=== PATIENT | female | born 1995 | race Caucasian/White ===

== ENCOUNTER → 2017-08-11 02:12 | Emergency (ER) | payer BC ==
[~2017-08-11 02:12] MED LIST: Charcoal ACTIVATED* 25 GM/120 ML BTL PO ONE
[2017-08-11 02:43] LABS: Urine Bilirubin Negative (Negative); Urine Glucose Negative (Negative); Urine Nitrite Negative (Negative)
[2017-08-11 03:00] LABS: Benzodiazepine Urine Screen None Detected (None Detect)
[2017-08-11 03:04] LABS: Hematocrit 41 % (35-47); Hemoglobin 13.7 g/dl (12.0-16.0); Mean Corpuscular HGB Conc 34 g/dl (31-36); Mean Corpuscular Hemoglobin 32 pg (27-31); Mean Corpuscular Volume 96 fL (80-97); Mean Platelet Volume 7 um3 (7.4-10.4); Red Blood Count 4.26 10^6/ul (4.0-5.4); Red Cell Distribution Width 13 % (10.5-15); White Blood Count 9.4 10^3/ul (3.5-10.8)
[2017-08-11 03:17] LABS: ALT 11 U/L (7-52); AST 18 U/L (13-39); Albumin 4.5 g/dL (3.2-5.2); Alkaline Phosphatase 71 U/L (34-104); Anion Gap 7 mmol/L (2-11); BUN/Creatinine Ratio 15.2 (8-20); Blood Urea Nitrogen 10 mg/dL (6-24); CO2 Carbon Dioxide 25 mmol/L (22-32); Calcium 9.5 mg/dL (8.6-10.3); Chloride 107 mmol/L (101-111); EGFR African American 146.8 (>60); EGFR Non-African American 114.2 (>60); Globulin 3.4 g/dL (2-4); Glucose 110 mg/dL (70-100); Potassium 3.7 mmol/L (3.5-5.0); Sodium 139 mmol/L (133-145); Total Protein 7.9 g/dL (6.4-8.9)
[2017-08-11 04:03] LABS: Alcohol 144 mg/dL (<10); Salicylate < 2.50 mg/dL (<30)
[2017-08-11 04:15] LABS: Acetaminophen 128 mcg/mL
[2017-08-11 08:23] LABS: ALT 11 U/L (7-52); AST 18 U/L (13-39); Albumin 4.4 g/dL (3.2-5.2); Alkaline Phosphatase 58 U/L (34-104); Globulin 3.1 g/dL (2-4); Total Protein 7.5 g/dL (6.4-8.9)
[2017-08-11 08:44] LABS: Salicylate < 2.50 mg/dL (<30)
--- NOTE | 2017-08-11 10:22 | PN ---
Progress Note - Progress Note Date of Service: 08/11/17 Note: S: Patient is seen, along with crisis transition nurse Julia Vargas, in the presence of her roommate. Please see Julia's MH evaluation for further Hx. Dusty is steadfastly denying SI or any risk to herself and does not believe hospitalization on the [facility] would benefit her. She follows up with a psychiatrist in [place], [place], with whom she has a follow up appointment in August. She has a list of in-network therapists from her insurance provider and would prefer this to working with the [facility] mental health program. Patient willing to contract for safety. Collateral information is reassuring. O: patient is calm and cooperative with full affect; denies SI or HI; insight and judgment are intact; future-oriented A/P: Unspecified Depressive DO: Recommend release to community care. Will f/u with in-network therapist. Patient will move up scheduled follow up with psychiatrist; she has signed consent to alert the Crisis aboriginal education worker coordinator who can help rally support on campus.
--- NOTE | 2017-08-11 10:42 | ED ---
Ness Mayorga Edward, scribed for Jered Downing MD on 08/11/17 at 0749 . Progress - Progress Note Progress Note: Pt signed out by Dr. Gonsales at shift change. Dr. Singh came and evaluated Ms. Mancera. He felt she was safe to go home and got her referred to crisis. She was D/C's in stable condition with a diagnosis of depression and overdose. Course/Dx - Diagnoses Provider Diagnoses: Drug overdose, multiple drugs, Depression, Suicide attempt The documentation as recorded by the kayeibNess gonzalez Edward accurately reflects the service I personally performed and the decisions made by Chang lee Richard L, MD.
[2017-08-11 10:54] VITALS: BP 116/68
--- NOTE | 2017-08-12 04:29 | ED ---
Bibi Mayorga Rebecca, scribed for Dany Gonsales MD on 08/11/17 at 0237 . Psychiatric Complaint - HPI Summary HPI Summary: Pt is a 21 y/o F BIBA as a 941 who presents to ED s/p excessive Tylenol, Advil and cold medication ingestion. Reports that at approximately 0100 she took 10 tabs of 200 mg Advil, 20 tabs of Tylenol and 4-6 tabs of cold medicine as well as 10 shots of vodka. States that she typically does not drink that much EtOH. Currently, her only complaint is fatigue. Sx aggravated and alleviated by nothing with no particular trigger that she can think so. PMHx depression and anxiety. States that her depression has been oscillating in intensity, which is typical for her. - History Of Current Complaint Chief Complaint: EDMentalHealth Time Seen by Provider: 08/11/17 02:18 Hx Obtained From: Patient Onset/Duration: Still Present Aggravating Factor(s): Nothing Alleviating Factor(s): Nothing Related History: Positive For: Prior Psychiatric Issues - Depression and Anxiety Ingestion History: Type/Name Of Drug - Tylenol, Ibuprofen and cold medication, Approximate Time Of Ingestion - 0100 - Allergies/Home Medications Allergies/Adverse Reactions: Allergies Allergy/AdvReac Type Severity Reaction Status Date / Time No Known Allergies Allergy Verified 08/11/17 02:43 PMH/Surg Hx/FS Hx/Imm Hx Endocrine/Hematology History: Denies: Hx Diabetes Psychiatric History: Reports: Hx Anxiety, Hx Depression Infectious Disease History: No Infectious Disease History: Denies: Traveled Outside the [place] in Last 30 Days - Family History Known Family History: Negative: Diabetes - Social History Occupation: Student Alcohol Use: Weekly Substance Use Type: Reports: None Smoking Status (MU): Light Every Day Tobacco Smoker Review of Systems Positive: Fatigue. Negative: Fever, Chills Negative: Erythema Negative: Sore Throat Negative: Chest Pain Negative: Shortness Of Breath, Cough Negative: Abdominal Pain, Vomiting, Nausea Negative: dysuria, hematuria Negative: Myalgia, Edema Negative: Rash Neurological: Other - NEGATIVE: Dizziness All Other Systems Reviewed And Are Negative: Yes Physical Exam - Summary Physical Exam Summary: Constitutional: Well-developed, Well-nourished, Alert, Odor of alcohol on breath. (-) Distressed Skin: Warm, Dry HENT: Normocephalic; Atraumatic Eyes: Conjunctiva normal Neck: Musculoskeletal ROM normal neck. (-) JVD, (-) Stridor, (-) Tracheal deviation Cardio: Rhythm regular, rate normal, Heart sounds normal; Intact distal pulses; The pedal pulses are 2+ and symmetric. Radial pulses are 2+ and symmetric. (-) Murmur Pulmonary/Chest wall: Effort normal. (-) Respiratory distress, (-) Wheezes, (-) Rales Abd: Soft, (-) Tenderness, (-) Distension, (-) Guarding, (-) Rebound Musculoskeletal: (-) Edema Lymph: (-) Cervical adenopathy Neuro: Alert, Oriented x3 Psych: Mood and affect Normal Triage Information Reviewed: Yes Vital Signs On Initial Exam: Initial Vitals Temp Pulse Resp BP Pulse Ox 98.3 F 105 18 158/135 100 08/11/17 02:14 08/11/17 02:14 08/11/17 02:14 08/11/17 02:14 08/11/17 02:14 Vital Signs Reviewed: Yes - Morena Coma Scale Coma Scale Total: 15 Diagnostics - Vital Signs Vital Signs Temp Pulse Resp BP Pulse Ox 08/11/17 02:18 98.3 F 105 18 158/135 100 08/11/17 02:14 98.3 F 105 18 158/135 100 - Laboratory Result Diagrams: 08/11/17 02:53 08/11/17 02:53 Lab Statement: Any lab studies that have been ordered have been reviewed, and results considered in the medical decision making process. - EKG 0231 Cardiac Rate: NL - 87 bpm EKG Rhythm: Sinus Rhythm Ectopy: None EKG Interpretation: QTC of 429, no STEMI Course/Dx - Course Assessment/Plan: Pt is a 21 y/o F BIBA as a 941 who presents to ED s/p excessive Tylenol, Advil and cold medication ingestion. Reports that at approximately 0100 she took 10 tabs of 200 mg Advil, 20 tabs of Tylenol and 4-6 tabs of cold medicine as well as 10 shots of vodka. States that she typically does not drink that much EtOH. Currently, her only complaint is fatigue. Sx aggravated and alleviated by nothing with no particular trigger that she can think so. PMHx depression and anxiety. States that her depression has been oscillating in intensity, which is typical for her. Serum alcohol of 144. Initial acetaminophen level of 128. Follow up of 117. EKG is sinus rhythm with no STEMI. In the ED course, pt received activated charcoal. She will be signed out, pending dispo, awaiting MHE. Elevated BP noted and advised to f/u with PCP. - Differential Dx/Clinical Impression Provider Diagnosis: Drug overdose, multiple drugs, Depression, Suicide attempt Discharge - Discharge Plan Condition: Stable Disposition: OTHER Discharge Disposition Comment: Pt will be signed out, pending dispo, awaiting MHE. The documentation as recorded by the Bibi napoles Rebecca accurately reflects the service I personally performed and the decisions made by me, Dany Gonsales MD.
== END ==
LOC: ED 02:12
DX: T39.312A Poisoning by propionic acid derivatives, intentional self-harm, initial encounter (principal); T39.1X2A Poisoning by 4-Aminophenol derivatives, intentional self-harm, initial encounter; T14.91 Suicide attempt; R53.83 Other fatigue; Y92.9 Unspecified place or not applicable; F17.210 Nicotine dependence, cigarettes, uncomplicated; F32.9 Major depressive disorder, single episode, unspecified
CPT/HCPCS: 36415; 80053; 80076; 80307; 80320; 80329; 81003; 84443; 85025; 93005; 99284; A9270-GY; G0480

== ENCOUNTER 2018-08-11 15:26 | Emergency (ER) | payer BC ==
--- NOTE | 2018-08-11 18:03 | ED ---
Lower Extremity - HPI Summary HPI Summary: Pt here w/ Rt ankle injury last night. Rolled her ankle while ambulating through parking lot. She's been able to bear weight but is painful to do so and has some swelling, stiffness and pain. Denies numbness, tingling, weakness. Has tried ibuprofen and ice prior to arrival. No other injuries to report. - History of Current Complaint Chief Complaint: EDExtremityLower Stated Complaint: RIGHT ANKLE INJURY Time Seen by Provider: 08/11/18 16:11 Hx Obtained From: Patient Pain Intensity: 5 - Allergies/Home Medications Allergies/Adverse Reactions: Allergies Allergy/AdvReac Type Severity Reaction Status Date / Time No Known Allergies Allergy Verified 08/11/17 02:43 PMH/Surg Hx/FS Hx/Imm Hx Previously Healthy: Yes Endocrine/Hematology History: Denies: Hx Anticoagulant Therapy, Hx Blood Disorders, Hx Diabetes Psychiatric History: Reports: Hx Anxiety, Hx Depression Denies: Hx Eating Disorder, Hx of Violent Episodes Against Others Infectious Disease History: No Infectious Disease History: Denies: Traveled Outside the [place] in Last 30 Days - Family History Known Family History: Negative: Diabetes - Social History Alcohol Use: Weekly Hx Substance Use: No Substance Use Type: Reports: None Hx Tobacco Use: No Smoking Status (MU): Never Smoked Tobacco Review of Systems Positive: no symptoms reported Positive: Arthralgia Skin: Negative Neurological: Negative Psychological: Normal All Other Systems Reviewed And Are Negative: Yes Physical Exam Triage Information Reviewed: Yes Vital Signs On Initial Exam: Initial Vitals Temp Pulse Resp BP Pulse Ox 98.4 F 94 16 142/96 100 08/11/18 15:30 08/11/18 15:30 08/11/18 15:30 08/11/18 15:30 08/11/18 15:30 Vital Signs Reviewed: Yes Appearance: Positive: Well-Appearing, No Pain Distress - at rest - mild pain w/ ankle ROM, Well-Nourished Skin: Positive: Warm, Skin Color Reflects Adequate Perfusion, Dry - mild edema over affected area - no skin breakdown Cardiovascular: Positive: Pulses are Symmetrical in both Upper and Lower Extremities Musculoskeletal: Positive: Strength/ROM Intact - Rt ankle with mild TTP - no sivakumar deformity Neurological: Positive: Normal, Sensory/Motor Intact, Alert, Oriented to Person Place, Time Psychiatric: Positive: Normal Diagnostics - Vital Signs Vital Signs Temp Pulse Resp BP Pulse Ox 08/11/18 15:30 98.4 F 94 16 142/96 100 - Laboratory Lab Statement: Any lab studies that have been ordered have been reviewed, and results considered in the medical decision making process. Lower Extremity Course/Dx - Course Course Of Treatment: XR: no acute findings - Diagnoses Provider Diagnoses: Right ankle sprain Discharge - Sign-Out/Discharge Documenting (check all that apply): Patient Departure - Discharge Plan Condition: Stable Disposition: HOME Patient Education Materials: Ankle Sprain (ED) Referrals: [facility] [Outside] Additional Instructions: REST, ICE, ELEVATE AND WEAR RAEGAN WRAP for pain/swelling. You may take ibuprofen alternating with acetaminophen as needed for pain. If pain persists beyond 2 weeks, follow-up with PCP ([facility] is an alternative if you do not have a PCP - call to schedule as needed) *If you develop numbness, tingling, weakness, swelling or skin discoloration, remove RAEGAN wrap and elevate arm for 20 minutes. If symptoms persist, return to ED - Billing Disposition and Condition Condition: STABLE Disposition: Home
--- NOTE | 2018-08-11 18:18 | RAD ---
INDICATION: Right ankle pain after a rolling injury the previous night COMPARISON: None. TECHNIQUE: 3 views of the right ankle were obtained. FINDINGS: The bones are normal alignment. Joint spaces appear maintained. No fracture is seen. IMPRESSION: Normal ankle radiograph. If the patient's symptoms persist, follow-up imaging is recommended.
[2018-08-11 18:36] VITALS: BP 137/71
== END 2018-08-11 18:34 | disposition home or self-care (01) ==
LOC: ED 15:26
DX: S93.401A Sprain of unspecified ligament of right ankle, initial encounter (principal); X50.1XXA Overexertion from prolonged static or awkward postures, initial encounter; Y93.01 Activity, walking, marching and hiking; Y92.481 Parking lot as the place of occurrence of the external cause
CPT/HCPCS: 99281

== ENCOUNTER 2019-01-09 01:55 | Emergency (ER) | payer BC ==
--- NOTE | 2019-01-09 02:24 | ED ---
Psychiatric Complaint - HPI Summary HPI Summary: This patient is a 23 year old F brought in by [employer] on 941 presenting to ED with a chief complaint of self-harm since [place]. The patient is from [facility] and her friend is the one who called [employer]. The CC is described as a laceration on the L lower leg. The patient rates the pain 0/10 in severity. Symptoms aggravated by frustration. Symptoms alleviated by nothing. Patient denies SI/ HI. Patient reports previous episode of self-harm when she had an anxiety attack 1 year ago and she also has been hospitalized before for mental health issues. - History Of Current Complaint Chief Complaint: EDMentalHealth Time Seen by Provider: 01/09/19 02:05 Hx Obtained From: Patient Onset/Duration: Sudden Onset, Still Present Severity Currently: None Character: Frustrated Aggravating Factor(s): Other - frustration Alleviating Factor(s): Nothing Related History: Positive For: Prior Psychiatric Issues Has Suicidal: Denies: Thoughts Has Homicidal: Denies: Thoughts - Allergies/Home Medications Allergies/Adverse Reactions: Allergies Allergy/AdvReac Type Severity Reaction Status Date / Time No Known Allergies Allergy Verified 01/09/19 02:01 PMH/Surg Hx/FS Hx/Imm Hx Endocrine/Hematology History: Denies: Hx Anticoagulant Therapy, Hx Blood Disorders, Hx Diabetes Psychiatric History: Reports: Hx Anxiety, Hx Depression Denies: Hx Eating Disorder, Hx of Violent Episodes Against Others Infectious Disease History: No Infectious Disease History: Denies: Traveled Outside the [place] in Last 30 Days - Family History Known Family History: Negative: Diabetes - Social History Alcohol Use: Weekly Hx Substance Use: No Substance Use Type: Reports: None Hx Tobacco Use: No Smoking Status (MU): Never Smoked Tobacco Review of Systems Positive: Other - laceration on the L lower leg Positive: Other - frustration; denies SI/HI All Other Systems Reviewed And Are Negative: Yes Physical Exam - Summary Physical Exam Summary: VITAL SIGNS: Reviewed. GENERAL: Patient is a well-developed and nourished FEMALE who is lying comfortable in the stretcher. Patient is not in any acute respiratory distress. HEAD AND FACE: No signs of trauma. No ecchymosis, hematomas or skull depressions. No sinus tenderness. EYES: PERRLA, EOMI x 2, No injected conjunctiva, no nystagmus. EARS: Hearing grossly intact. Ear canals and tympanic membranes are within normal limits. MOUTH: Oropharynx within normal limits. NECK: Supple, trachea is midline, no adenopathy, no JVD, no carotid bruit, no c- spine tenderness, neck with full ROM. CHEST: Symmetric, no tenderness at palpation LUNGS: Clear to auscultation bilaterally. No wheezing or crackles. CVS: Regular rate and rhythm, S1 and S2 present, no murmurs or gallops appreciated. ABDOMEN: Soft, non-tender. No signs of distention. No rebound no guarding, and no masses palpated. Bowel sounds are normal. EXTREMITIES: FROM in all major joints, no edema, no cyanosis or clubbing. NEURO: Alert and oriented x 3. No acute neurological deficits. Speech is normal and follows commands. SKIN: Dry and warm. 2 inches superficial laceration, self-inflicted on the L ankle medial Triage Information Reviewed: Yes Vital Signs On Initial Exam: Initial Vitals Temp Pulse Resp BP Pulse Ox 98.9 F 114 16 165/117 97 01/09/19 01:56 01/09/19 01:56 01/09/19 01:56 01/09/19 01:56 01/09/19 01:56 Vital Signs Reviewed: Yes Diagnostics - Vital Signs Vital Signs Temp Pulse Resp BP Pulse Ox 01/09/19 01:56 98.9 F 114 16 165/117 97 - Laboratory Result Diagrams: 01/09/19 02:25 01/09/19 02:25 Lab Statement: Any lab studies that have been ordered have been reviewed, and results considered in the medical decision making process. Course/Dx - Course Assessment/Plan: This patient is a 23 year old F brought in by [employer] on 941 presenting to ED with a chief complaint of self-harm since [place]. This patient was cleared for MHE at 0404. At 0451, Dr. Briggs says to hold the patient in the ED until the morning when a psychiatrist can come talk to her. This patient will be signed out to Dr. Gonsales, pending dispo, awaiting MHE. - Differential Dx/Clinical Impression Differential Diagnosis/HQI/PQRI: Positive: Depression Provider Diagnosis: Depression - Physician Notifications Discussed Care Of Patient With: Evert Briggs Time Discussed With Above Provider: 04:51 Instructed by Provider To: Other - Dr. Briggs says to hold the patient in the ED until the morning when a psychiatrist can come talk to her. Discharge - Sign-Out/Discharge Documenting (check all that apply): Sign-Out Patient - pending dispo, awaiting MHE Signing out patient TO: Dany Gonsales Patient Received Moderate/Deep Sedation with Procedure: No - Discharge Plan Condition: Stable Referrals: No Primary Care Phys,NOPCP [Primary Care Provider] - - Billing Disposition and Condition Condition: STABLE - Attestation Statements Document Initiated by Scribe: Yes Documenting Scribe: Victor Manuel Mcgill Provider For Whom Scribe is Documenting (Include Credential): Tez Phillips MD Scribe Attestation: IVictor Manuel, scribed for Tez Phillips MD on 01/09/19 at 0541. Scribe Documentation Reviewed: Yes Provider Attestation: The documentation as recorded by the scribeVictor Manuel accurately reflects the service I personally performed and the decisions made by me, Tez Phillips MD Status of Scribe Document: Viewed
[2019-01-09 02:33] LABS: Urine Appearance Clear; Urine Bilirubin Negative (Negative); Urine Blood Negative (Negative); Urine Color Colorless; Urine Glucose Negative (Negative); Urine Ketones Negative (Negative); Urine Nitrite Negative (Negative); Urine Protein Negative (Negative); Urine Specific Gravity 1.002 (1.010-1.030); Urine Urobilinogen Negative (Negative)
[2019-01-09 02:33] LABS: ABS Basophils 0 10^3/ul (0-0.2); ABS Eosinophils 0 10^3/ul (0-0.6); ABS Lymphocytes 2.5 10^3/ul (1.0-4.8); ABS Monocytes 0.5 10^3/ul (0-0.8); ABS Neutrophils 4.7 10^3/ul (1.5-7.7); ABS Nucleated RBC 0 10^3/ul; Eosinophil % 0.5 %; Hematocrit 41 % (35-47); Lymphocyte % 31.9 %; Mean Corpuscular HGB Conc 34 g/dl (31-36); Mean Corpuscular Hemoglobin 33 pg (27-31); Mean Corpuscular Volume 98 fL (80-97); Mean Platelet Volume 7.1 fL (7.4-10.4); Nucleated Red Blood Cells % 0.1; Platelet Count 327 10^3/ul (150-450); Red Blood Count 4.23 10^6/ul (4.00-5.40); Red Cell Distribution Width 13 % (10.5-15); White Blood Count 7.7 10^3/ul (3.5-10.8)
[2019-01-09 02:48] LABS: ALT 18 U/L (7-52); AST 22 U/L (13-39); Albumin 4.4 g/dL (3.2-5.2); Albumin/Globulin Ratio 1.4 (1-3); Alkaline Phosphatase 57 U/L (34-104); Anion Gap 8 mmol/L (2-11); BUN/Creatinine Ratio 10.1 (8-20); Blood Urea Nitrogen 7 mg/dL (6-24); CO2 Carbon Dioxide 24 mmol/L (22-32); Calcium 9.6 mg/dL (8.6-10.3); Chloride 105 mmol/L (101-111); EGFR African American 128.7 (>60); EGFR Non-African American 106.4 (>60); Globulin 3.2 g/dL (2-4); Glucose 100 mg/dL (70-100); Potassium 3.8 mmol/L (3.5-5.0); Sodium 137 mmol/L (135-145); Total Protein 7.6 g/dL (6.4-8.9)
[2019-01-09 02:55] LABS: HCG Pregnancy < 0.60 mIU/mL
[2019-01-09 02:56] LABS: Barbiturates Urine Screen None Detected (None Detect); Benzodiazepine Urine Screen None Detected (None Detect); Urine Cannabinoids Screen None Detected (None Detect)
[2019-01-09 03:02] LABS: Acetaminophen < 15 mcg/mL; Alcohol 133 mg/dL (<10); Salicylate < 2.50 mg/dL (<30)
[2019-01-09 03:18] LABS: TSH (Thyroid Stimulating Horm) 4.43 mcIU/mL (0.34-5.60)
--- NOTE | 2019-01-09 07:23 | ED ---
Progress - Progress Note Progress Note: RECEIVING SIGN-OUT FROM DR. PHILLIPS AT SHIFT CHANGING PENDING MHE. Course/Dx - Course Course Of Treatment: RECEIVING SIGN-OUT FROM DR. PHILLIPS AT SHIFT CHANGING PENDING MHE. Consulted with maru Santamaria, at 0907, who approves patient for discharge to follow-up with [facility] services. - Diagnoses Provider Diagnoses: Unspecified mood [affective] disorder - Provider Notifications Discussed Care Of Patient With: Escobar Singh Time Discussed With Above Provider: 09:07 Instructed by Provider To: Other - Patient is OK for discharge. Discharge - Sign-Out/Discharge Documenting (check all that apply): Patient Departure - D/C, Receiving Sign-Out Receiving patient FROM: Tez Phillips - PENDING MHE Patient Received Moderate/Deep Sedation with Procedure: No - Discharge Plan Condition: Stable Disposition: HOME Referrals: [facility]: Psych Services [Outside] Additional Instructions: Return to the emergency department for changing or worsening symptoms. - Attestation Statements Document Initiated by Scribe: Yes Documenting Scribe: Guzman Prieto Provider For Whom Scribe is Documenting (Include Credential): Dr. Dany Gonsales MD Scribe Attestation: I, Guzman Prieto, scribed for Dr. Dany Gonsales MD on 01/09/19 at 0909.
[2019-01-09 07:26] VITALS: BP 142/94
== END 2019-01-09 10:20 | disposition home or self-care (01) ==
LOC: ED 01:55
DX: F32.9 Major depressive disorder, single episode, unspecified (principal)
CPT/HCPCS: 36415; 80053; 80307; 80320; 80329; 81003; 84443; 84702; 85025; 99284; G0480